=== PATIENT | female | born 1960 | race Caucasian/White ===

== ENCOUNTER → 2017-11-11 | Outpatient (CLI) | payer BC | END | disposition home or self-care (01) | LOC: PLD 12:20 → LAB SHORT 12:20 | DX: R87.810 Cervical high risk human papillomavirus (HPV) DNA test positive (principal); B97.7 Papillomavirus as the cause of diseases classified elsewhere | CPT/HCPCS: 88305; 88341; 88342 ==

== ENCOUNTER 2019-06-10 12:54 | Observation (INO) | payer BC ==
[~2019-06-10] VITALS: Ht 175.3 cm; Wt 70.3 kg
[~2019-06-10 12:54] MED LIST: CALTRATE 600+D1 EAC1 PO; CETI5 PO; CHOL10002 PO; DOCU100 PO; ESTR2 PO; HYDR1TAB94 PO; Hair, Skin & N1 EACH PO; IBUP800 PO; ONDA4ODT MM; PROG100 PO
[2019-06-10 13:12] LABS: BASOPHILS ABSOLUTE AUTO 0.05 K/mm3 (0.00-0.23); BASOPHILS PERCENT AUTO 1 % (0-2); EOSINOPHILS ABSOLUTE AUTO 0.07 K/mm3 (0.00-0.68); EOSINOPHILS PERCENT AUTO 1 % (0-6); Hematocrit 41.9 % (33.0-51.0); IMMATURE GRAN ABSOLUTE AUTO 0.02 K/mm3 (0.00-0.10); IMMATURE GRAN PERCENT AUTO 0 % (0-1); LYMPHOCYTES PERCENT AUTO 20 % (21-46); MONOCYTES ABSOLUTE AUTO 0.73 K/mm3 (0.16-1.47); MONOCYTES PERCENT AUTO 9 % (4-13); Mean Corpuscular HGB 30.5 pg (26.0-34.0); Mean Corpuscular HGB Conc 33.4 g/dL (31.5-36.5); Mean Corpuscular Volume 91 fL (80-100); Mean Platelet Volume 9.3 fL (9.1-12.4); NEUTROPHILS ABSOLUTE AUTO 5.49 K/mm3 (1.96-9.15); NEUTROPHILS PERCENT AUTO 69 % (41-73); Platelet Count 323 K/mm3 (150-400); RDW Coefficient Variation 11.9 % (11.7-14.2); RDW Standard Deviation 40.4 fL (35.1-46.3); Red Blood Cell Count 4.59 M/mm3 (3.80-5.20); White Blood Cell Count 7.96 K/mm3 (4.00-11.30)
[2019-06-10 13:25] LABS: International Normalized Ratio 0.97; Prothrombin Time Results 10.4 Sec (9.7-11.5)
[2019-06-10 13:30] LABS: Alanine Aminotransfer (ALT/SGP 28 U/L (12-78); Albumin, Blood 3.4 g/dL (3.4-5.0); Albumin/Globulin Ratio 0.8 (0.8-1.8); Alk Phos 84 U/L (50-136); Anion Gap 9 mmol/L (6-16); Aspartate Aminotrans (AST/SGOT 37 U/L (12-37); Bilirubin, Total 0.3 mg/dL (0.1-1.0); Blood Urea Nitrogen 13 mg/dL (8-24); Bun/Creatinine Ratio 14.5 (12.0-20.0); CO2, Blood 24 mmol/L (21-32); Calcium, Blood 9.2 mg/dL (8.5-10.1); Chloride, Blood 105 mmol/L (98-108); Ethanol (Alcohol), Blood, Med <3 mg/dL; Globulin, Blood 4.3 g/dL (2.2-4.0); Glomerular Filtration Rate >60 (60-); Glucose, Blood 94 mg/dL (70-99); Potassium, Blood 3.7 mmol/L (3.5-5.5); Sodium, Blood 138 mmol/L (136-145); Total Protein, Blood 7.7 g/dL (6.4-8.2)
[2019-06-10] MEDS ORDERED: GABA100 PO (14:09)
[2019-06-10] MEDS ORDERED: OMEP20ER PO (14:13)
[2019-06-10] MEDS ORDERED: Caltrate-600 W1 EACH PO (16:29)
--- NOTE | 2019-06-10 17:15 | NUR ---
CAROTID DUPLEX: LEXA DIXON, CALLED RN TO BRING HER ATTENTION TO THE RESULTS OF THE CAROTID DUPLEX. THIS WAS NOTED AND PASSED ON TO DR. HARRIS.
--- NOTE | 2019-06-10 17:21 | NUR ---
UNIT ADMISSION: PATIENT ARRIVED TO THE UNIT VIA STRETCHER. PATIENT TRANSFERRED INDEPENDENTLY TO THE UNIT BED. PATIENT STEADY ON HER FEET. PATIENT DENIES DIZZINESS OR SOB. NO DISCOMFORT OR SOB NOTED. PATIENT ALERT AND ORIENTED TO SELF, SITUATION, SURROUNDINGS, AND PLACE. UNABLE TO PROVIDE THE DATE AND TIME. PATIENT HAS SOME DIFFICULTY WITH WORD FINDING AND COMPLETING A LONG STORY. PATIENT IS ABLE TO ANSWER QUESTIONS APPROPRIATELY ABOUT HER HISTORY AND HEALTH WITH SOME MINOR DETAILS MISSING. PATIENT IS LAUGHING APPROPRIATELY AND CONVERSING APPROPRIATELY. PATIENT HAS NUMBNESS IN RIGHT HAND, BUT ABLE TO FEEL PRESSURE. PATIENT REPORTS PAIN IN BACK AND RIGHT HIP. PATIENT DENIES NEED FOR INTERVENTION. PATIENT HOLDS RIGHT HAND GRASPED IN A FIST. PATIENT REPORTS THAT THIS IS NOT INTENTIONAL, BUT SIMPLY THE WAY HER HAND ENDS UP. PATIENT HAS NOTICABLE WEAKNESS IN THE RIGH ARM COMPARED TO THE LEFT ARM. LEGS AND FEET ARE OF EQUAL STRENGTH. FACE IS SYMMETRICAL.
--- NOTE | 2019-06-10 18:43 | NUR ---
END OF SHIFT SUMMARY: THROUGHOUT TIME WITH PATIENT, SHE REPORTED 5/10 PAIN IN BACK AND RIGHT HIP THAT WAS EXACERBATED WITH MOVEMENT. PATIENT DENIED NEED FOR ANY INTERVENTION. PATIENT STEADY ON HER FEET. PATIENT WAITED FOR STAFF BEFORE WALKING TO THE BATHROOM. PATIENT DENIES DIZZINESS OR UNSTEADINESS. PATIENT UTILIZED CALL LIGHT APPROPRIATELY. PATIENT HAD NO CHANGES TO INITIAL NEURO ASSESSMENT. PATIENT PLACED ON TELEMETRY WHICH SHOWED NSR AT 80. WITH PATIENT'S VERBAL PERMISSION, UPDATED PATIENT'S SRI POST DISCUSSION WITH DR. HARRIS. PLAN IS FOR THE PATIENT TO DISCHARGE TOMORROW AFTER ECHO AND OTHER TESTING IS COMPLETE.
--- NOTE | 2019-06-11 03:50 | NUR ---
LAYER OUT SUMMARY PT A/O X4. DENIES CHEST PAIN, NAUSEA, SOB. PT ASKED ABOUT ESTRACE MEDICATION THAT SHE TAKES AT HOME AND REQUESTED TO HAVE IT LAST NIGHT SINCE IT WASN'T I HER EMAR. HOSPITALIST NICK NOTIFIED AND SAID THAT IT CAN CONTRIBUTE TO [employer]. I RELAYED THIS INFO TO PT. PT'S RUE IS A LITTLE WEAKER COMPARED TO LUE. NO WEAKNESS NOTED IN BLE. PT CALLS APPROPRIATELY. STANDBY ASSIST TO BATHROOM. VSS. CALL LIGHT WITHIN REACH.
[2019-06-11 05:22] LABS: BASOPHILS ABSOLUTE AUTO 0.04 K/mm3 (0.00-0.23); BASOPHILS PERCENT AUTO 1 % (0-2); EOSINOPHILS ABSOLUTE AUTO 0.27 K/mm3 (0.00-0.68); EOSINOPHILS PERCENT AUTO 4 % (0-6); Hematocrit 39.4 % (33.0-51.0); IMMATURE GRAN ABSOLUTE AUTO 0.02 K/mm3 (0.00-0.10); IMMATURE GRAN PERCENT AUTO 0 % (0-1); LYMPHOCYTES ABSOLUTE AUTO 1.76 K/mm3 (0.84-5.20); LYMPHOCYTES PERCENT AUTO 26 % (21-46); MONOCYTES ABSOLUTE AUTO 0.92 K/mm3 (0.16-1.47); MONOCYTES PERCENT AUTO 13 % (4-13); Mean Corpuscular HGB 30.7 pg (26.0-34.0); Mean Corpuscular Volume 93 fL (80-100); Mean Platelet Volume 9.6 fL (9.1-12.4); NEUTROPHILS ABSOLUTE AUTO 3.89 K/mm3 (1.96-9.15); NEUTROPHILS PERCENT AUTO 56 % (41-73); Platelet Count 275 K/mm3 (150-400); RDW Standard Deviation 40.7 fL (35.1-46.3); Red Blood Cell Count 4.24 M/mm3 (3.80-5.20)
[2019-06-11 05:45] LABS: Alanine Aminotransfer (ALT/SGP 19 U/L (12-78); Albumin, Blood 2.9 g/dL (3.4-5.0); Albumin/Globulin Ratio 0.8 (0.8-1.8); Alk Phos 73 U/L (50-136); Anion Gap 6 mmol/L (6-16); Aspartate Aminotrans (AST/SGOT 25 U/L (12-37); Bilirubin, Total 0.4 mg/dL (0.1-1.0); Blood Urea Nitrogen 14 mg/dL (8-24); Bun/Creatinine Ratio 16.2 (12.0-20.0); CHOL/HDL RATIO 2.9; CO2, Blood 25 mmol/L (21-32); Calcium, Blood 8.5 mg/dL (8.5-10.1); Chloride, Blood 109 mmol/L (98-108); Cholesterol 163 mg/dL (50-200); Creatinine, Blood 0.86 mg/dL (0.40-1.00); Globulin, Blood 3.7 g/dL (2.2-4.0); Glomerular Filtration Rate >60 (60-); Glucose, Blood 89 mg/dL (70-99); HDL Cholesterol 56 mg/dL (>39); LDL/HDL RATIO 1.5; Low Density Lipoprotein Chol 83 mg/dL (0-110); Potassium, Blood 3.6 mmol/L (3.5-5.5); Sodium, Blood 140 mmol/L (136-145); Total Protein, Blood 6.6 g/dL (6.4-8.2); Triglycerides 121 mg/dL (30-160); Very Low Density Lipoprot Chol 24 mg/dL (6-32)
--- NOTE | 2019-06-11 09:51 | NUR ---
ECHOCARDIOGRAM COMPLETED
[2019-06-11] MEDS ORDERED: ASPI81CH PO (16:33)
[2019-06-11] MEDS ORDERED: ATOR20 PO (16:33)
--- NOTE | 2019-06-11 17:10 | NUR ---
DISCHARGE SUMMARY: NO CHANGES TO NEURO STATUS TODAY FROM INITIAL ASSESSMENT. PATIENT CONTINUED TO BE AO X 3. PATIENT CONTINUED TO HAVE IMPROVED STRENGTH IN RIGHT ARM. PATIENT STEADY ON FEET. DENIES INCREASE IN WEAKNESS OR CONFUSION. PATIENT CONTINUED TO HAVE PAIN AT A 5/10 IN THE BACK. PATIENT UTILIZED K-PAD THROUGHOUT SHIFT. PATIENT READY FOR DISCHARGE PER MD ORDERS. DISCHARGE RX FACED TO [facility] [place] PER PATIENT REQUEST. DISCHARGE INSTRUCTIONS AND EDUCATION PROVIDED TO PATIENT AND PATIENT'S ON THE PHONE. ALL QUESTIONS AND CONCERNS ADDRESSED. PATIENT STABLE AT TIME OF DISCHARGE. DISCHARGED IN WHEELCHAIR WITH RN. WAITING AT ENTRANCE.
[2019-06-12 07:07] LABS: COMPLEMENT C3, SERUM 139 mg/dL (82-167); COMPLEMENT C4, SERUM 35 mg/dL (14-44)
[2019-06-13 14:08] LABS: ANTI-DSDNA ANTIBODIES 7 IU/mL (0-9); RNP ANTIBODIES <0.2 AI (0.0-0.9); SJOGREN'S ANTI-SS-A <0.2 AI (0.0-0.9); SJOGREN'S ANTI-SS-B <0.2 AI (0.0-0.9); SMITH ANTIBODIES <0.2 AI (0.0-0.9)
== END 2019-06-11 16:58 | disposition home or self-care (01) ==
LOC: ER 12:54 → MEDS 12:55
PROVIDERS: Nurse Practitioner; ADMIT Internal Medicine
DX: I63.512 Cerebral infarction due to unspecified occlusion or stenosis of left middle cerebral artery (principal); R40.4 Transient alteration of awareness; I65.22 Occlusion and stenosis of left carotid artery; I67.1 Cerebral aneurysm, nonruptured; R03.0 Elevated blood-pressure reading, without diagnosis of hypertension; Z87.891 Personal history of nicotine dependence; Z78.0 Asymptomatic menopausal state; Z79.890 Hormone replacement therapy; Z79.899 Other long term (current) drug therapy; Z88.8 Allergy status to other drugs, medicaments and biological substances
CPT/HCPCS: 36415; 70450; 70496; 70498; 71046; 80053; 80061; 82947; 85025; 85610; 85651; 85730; 93005; 93010; 93306; 93880; 97162; 97530; 99285-25; A9270-GY; G0378; G0480; Q9967

== ENCOUNTER → 2020-01-18 | Outpatient (CLI) | payer BC ==
[~2020-01-18] MED LIST changes: +ASPI81CH PO; +ATOR20 PO; +Caltrate-600 W1 EACH PO; +GABA100 PO; +OMEP20ER PO
[2020-01-22 09:07] LABS: HPV 16 Negative (Negative); HPV 18 Negative (Negative); HPV OTHER HR TYPES Negative (Negative)
== END | disposition home or self-care (01) ==
LOC: LAB SHORT 14:10 → LAB 14:10
PROVIDERS: Obstetrics & Gynecology
DX: Z09 Encounter for follow-up examination after completed treatment for conditions other than malignant neoplasm (principal); Z86.19 Personal history of other infectious and parasitic diseases
CPT/HCPCS: 87624; G0123

== ENCOUNTER → 2021-10-22 | Outpatient (CLI) | payer BC ==
[2021-10-23 15:10] LABS: HPV 16 Negative (Negative); HPV 18 Negative (Negative); HPV OTHER HR TYPES Negative (Negative)
== END | disposition home or self-care (01) ==
LOC: LAB 17:00 → LAB SHORT 17:00
PROVIDERS: Advanced Practice Midwife
DX: Z01.419 Encounter for gynecological examination (general) (routine) without abnormal findings (principal)
CPT/HCPCS: 87624; G0123

== ENCOUNTER 2023-01-05 15:50 | Emergency (ER) | payer BC ==
[~2023-01-05] VITALS: Ht 175.3 cm; Wt 72.6 kg
[2023-01-05 16:57] LABS: BASOPHILS ABSOLUTE AUTO 0.03 K/mm3 (0.00-0.23); BASOPHILS PERCENT AUTO 0 % (0-2); EOSINOPHILS ABSOLUTE AUTO 0.06 K/mm3 (0.00-0.68); EOSINOPHILS PERCENT AUTO 1 % (0-6); Hematocrit 44.2 % (33.0-51.0); Hemoglobin 14.9 g/dL (11.5-16.0); IMMATURE GRAN ABSOLUTE AUTO 0.03 K/mm3 (0.00-0.10); IMMATURE GRAN PERCENT AUTO 0 % (0-1); LYMPHOCYTES ABSOLUTE AUTO 1.42 K/mm3 (0.84-5.20); LYMPHOCYTES PERCENT AUTO 16 % (21-46); MONOCYTES ABSOLUTE AUTO 0.66 K/mm3 (0.16-1.47); MONOCYTES PERCENT AUTO 7 % (4-13); Mean Corpuscular HGB Conc 33.7 g/dL (31.5-36.5); Mean Corpuscular Volume 89 fL (80-100); Mean Platelet Volume 9.5 fL (9.1-12.4); NEUTROPHILS ABSOLUTE AUTO 6.76 K/mm3 (1.96-9.15); NEUTROPHILS PERCENT AUTO 76 % (41-73); Platelet Count 334 K/mm3 (150-400); RDW Coefficient Variation 12.9 % (11.7-14.2); RDW Standard Deviation 42.3 fL (35.1-46.3); Red Blood Cell Count 4.97 M/mm3 (3.80-5.20); White Blood Cell Count 8.96 K/mm3 (4.00-11.30)
[2023-01-05 17:27] LABS: Albumin, Blood 3.8 g/dL (3.4-5.0); Albumin/Globulin Ratio 0.9 (0.8-1.8); Bilirubin, Total 0.3 mg/dL (0.1-1.0); Bun/Creatinine Ratio 9.5 (12.0-20.0); Calcium, Blood 9.6 mg/dL (8.5-10.1); Creatinine, Blood 0.95 mg/dL (0.40-1.00); Globulin, Blood 4.3 g/dL (2.2-4.0); Magnesium, Blood 2.1 mg/dL (1.6-2.4); Potassium, Blood 3.7 mmol/L (3.5-5.5); Total Protein, Blood 8.1 g/dL (6.4-8.2)
[2023-01-05 17:56] VITALS: BP 147/94
[2023-01-05 18:17] LABS: Source, Urine Clean Catch
[2023-01-05 18:28] LABS: Appearance, Urine Clear (Clear); Bilirubin, Urine Neg (Neg); Blood, Urine 1+ (Neg); Color, Urine Yellow (P-Yellow); Glucose Qualitative, Urine Neg (Neg); Ketones, Urine Neg (Neg); Leukocyte Esterase, Urine 1+ (Neg); Nitrite, Urine Neg (Neg); Protein, Urine Neg (Neg); Urobilinogen, Urine NORM (Normal)
[2023-01-05 19:52] LABS: Bacteria Few /hpf; Squamous Epithelial Cells Few /hpf (Few)
[2023-01-05] MEDS ORDERED: CEPH500 PO (21:39)
[2023-01-05] MEDS ORDERED: ADULT GLYCERIN1 EACH PR (21:40)
== END 2023-01-05 21:44 | disposition home or self-care (01) ==
LOC: ER 15:50
PROVIDERS: Physician Assistant
DX: R33.9 Retention of urine, unspecified (principal); K52.89 Other specified noninfective gastroenteritis and colitis; Z87.891 Personal history of nicotine dependence
CPT/HCPCS: 51702; 74177; 80053; 81001; 83735; 85025; 87077; 87086; 87186; 99284-25; A9270; Q9967